=== PATIENT | female | born 1985 | race Caucasian/White ===

== ENCOUNTER → 2024-12-18 14:47 | Outpatient (REF) | payer BC, SELFPAY | LOC: RAD 14:47 | PROVIDERS: ATTENDING PHYSICIAN Obstetrics & Gynecology; FAMILY PHYSICIAN Nurse Practitioner Adult Health | DX: Z31.41 Encounter for fertility testing (principal); N97.9 Female infertility, unspecified | CPT/HCPCS: 58340; 74740 ==